=== PATIENT | male | born 1985 | race African-American/Black ===

== ENCOUNTER 2020-11-19 23:31 | Emergency (ER) | payer MEDICAID ==
[~2020-11-19] VITALS: Ht 182.9 cm; Wt 78.0 kg
[2020-11-20] MEDS ORDERED: BUTALBITAL/ACETAMINOPHEN/CAFFEINE 50/325/40MG TABLET PO ONE (00:15)
[2020-11-20] MEDS ORDERED: SUMATRIPTAN SUCCINATE 6MG/0.5ML VIAL SUBCUT ONE (00:15)
[2020-11-20] MEDS ORDERED: SODIUM CHLORIDE 0.9% 1,000 ML IV ONE (00:15)
[2020-11-20] MEDS ORDERED: BUTA1CAP45 MT (01:17)
[2020-11-20 01:38] VITALS: BP 126/72
== END 2020-11-20 01:45 | disposition home or self-care (01) ==
LOC: ER 23:31
DX: G43.909 Migraine, unspecified, not intractable, without status migrainosus (principal); F17.210 Nicotine dependence, cigarettes, uncomplicated; Z98.890 Other specified postprocedural states; Z86.19 Personal history of other infectious and parasitic diseases
CPT/HCPCS: 96360; 96372; 99283; J3030; J7030

== ENCOUNTER 2020-11-20 22:02 | Emergency (ER) | payer MEDICAID ==
[~2020-11-20] VITALS: Ht 182.9 cm; Wt 79.0 kg
[~2020-11-20 22:02] MED LIST: BUTA1CAP45 MT
[2020-11-20] MEDS ORDERED: KETOROLAC 60MG/2ML VIAL IM ONE (22:30)
[2020-11-20] MEDS ORDERED: PROCHLORPERAZINE MALEATE 10MG TABLET PO ONE (22:30)
[2020-11-20] MEDS ORDERED: SUMATRIPTAN SUCCINATE 6MG/0.5ML VIAL SUBCUT ONE (22:30)
[2020-11-20] MEDS ORDERED: DEXAMETHASONE 4MG TABLET PO ONE (22:30)
[2020-11-20] MEDS ORDERED: DIPHENHYDRAMINE 25MG CAPSULE PO ONE (22:30)
[2020-11-20 23:00] VITALS: BP 125/75
== END 2020-11-21 00:34 | disposition home or self-care (01) ==
LOC: ER 22:21
DX: G43.909 Migraine, unspecified, not intractable, without status migrainosus (principal); F12.10 Cannabis abuse, uncomplicated
CPT/HCPCS: 96372; 99284; J1885; J3030; J8540; Q0163; Q0164; Z7610